=== PATIENT | male | born 1945 | race African-American/Black ===

== ENCOUNTER 2016-09-11 02:23 | Emergency (ER) | payer MEDICARE ==
[~2016-09-11 02:23] MED LIST: ACETAMINOPHEN PO; DEBROX OTIC DRO15 ML AD; LISINOPRIL PO; LOPRESSOR PO
== END 2016-09-11 02:43 | disposition home or self-care (01) ==
LOC: SED 02:23
DX: H61.22 Impacted cerumen, left ear (principal); I10 Essential (primary) hypertension; F17.200 Nicotine dependence, unspecified, uncomplicated
CPT/HCPCS: 69209; 99283

== ENCOUNTER 2016-12-27 23:18 | Emergency (ER) | payer MEDICARE ==
[~2016-12-27] VITALS: Ht 170.2 cm; Wt 65.8 kg
== END 2016-12-28 02:25 | disposition home or self-care (01) ==
LOC: SED 23:18
DX: L02.215 Cutaneous abscess of perineum (principal); Z79.899 Other long term (current) drug therapy
CPT/HCPCS: 99283